=== PATIENT | male | born 1960 | race Caucasian/White ===

== ENCOUNTER 2017-05-19 18:43 | Emergency (ER) | payer MEDICARE, OTHER ==
[~2017-05-19] VITALS: Ht 185.4 cm; Wt 96.2 kg
[~2017-05-19 18:43] MED LIST: BISA-4; ETOD400T; LITH300C3; OLAN15TA16; PREVACID; PROZAC; TRAZADONE
[2017-05-19 18:56] VITALS: BP 82/2
[2017-05-19 19:50] LABS: Basophils # (auto) 0 uL; Basophils % (auto) 0.2 % (0.0-2.0); CONDITION Y; Eosinophils # (auto) 0 uL; Eosinophils % (auto) 0.2 % (0.0-7.0); Hematocrit 47.3 % (41.0-53.0); Hemoglobin 15.6 g/dL (13.5-17.5); Lymphocytes # (auto) 1.2 uL; Lymphocytes % (auto) 10.5 % (10.0-50.0); Mean Corpuscular Hemoglobin 28.3 pg (28.0-32.0); Mean Corpuscular Hgb Conc. 32.9 g/dL (32.0-36.0); Mean Corpuscular Volume 85.9 fL (80.0-100.0); Mean Platelet Volume 7.3 fL (7.4-10.4); Monocytes # (auto) 0.4 uL; Monocytes % (auto) 3.1 % (0.0-12.0); Platelet Count (auto) 280 10^3/uL (140-450); Red Cell Distribution Width 13.9 % (11.6-16.0); White Blood Cell 11.6 10^3/uL (4.4-10.8)
[2017-05-19 20:15] LABS: Alkaline Phosphatase 100 U/L (45-117); Anion Gap 10 (5-15); Aspartate Aminotransferase 27 U/L (15-37); BUN/Creatinine Ratio 13.8; Bilirubin, Total 0.5 mg/dL (0.2-1.0); Blood Urea Nitrogen 12 mg/dL (7-18); Calcium 9.4 mg/dL (8.5-10.1); Carbon Dioxide 22 mmol/L (21-32); Chloride 102 mmol/L (98-107); GFR African American 116 mL/min; GFR Non-African American 96 mL/min; Glucose 130 mg/dL (74-106); Magnesium 2.5 mg/dL (1.6-2.6); Sodium 134 mmol/L (136-145); Total Protein 7.6 g/dL (6.4-8.2)
== END 2017-05-20 00:26 | disposition left against medical advice (07) ==
LOC: ER 18:43
DX: R06.02 Shortness of breath (principal); R51 Headache; Z53.21 Procedure and treatment not carried out due to patient leaving prior to being seen by health care provider
CPT/HCPCS: 36415; 71020; 80053; 83735; 84484; 85025; 93005

== ENCOUNTER 2024-06-24 04:01 | Emergency (ER) | payer MEDICARE, MEDICAID ==
[~2024-06-24] VITALS: Ht 177.8 cm; Wt 104.5 kg
[~2024-06-24 04:01] MED LIST changes: -BISA-4; +BISA-65; +ETOD-182; -ETOD400T; +OLAN15TA; -OLAN15TA16
[2024-06-24] MEDS ORDERED: DOCU-94 PO (07:04)
[2024-06-24] MEDS ORDERED: HYDR25SU21 PR (07:04)
[2024-06-24] MEDS: KETOROLAC TROMETH 60MG/2ML VIAL IM ONE (07:10)
[2024-06-24 07:17] VITALS: BP 125/86; PULSE 74; RESP 18; TEMP 98; O2SAT 97
== END 2024-06-24 07:22 | disposition home or self-care (01) ==
LOC: EDBD 04:01 → ER 04:03
DX: K64.4 Residual hemorrhoidal skin tags (principal); K62.89 Other specified diseases of anus and rectum; F41.9 Anxiety disorder, unspecified; F32.9 Major depressive disorder, single episode, unspecified; E78.5 Hyperlipidemia, unspecified; F15.90 Other stimulant use, unspecified, uncomplicated; Z79.899 Other long term (current) drug therapy
CPT/HCPCS: 96372; 99283; J1885

== ENCOUNTER 2025-09-16 12:15 | Inpatient (IN) | payer MEDICARE, MEDICAID ==
[~2025-09-16] VITALS: Ht 182.9 cm; Wt 99.0 kg
[~2025-09-16 12:15] MED LIST changes: +DOCU-94 PO; +HYDR25SU21 PR
--- NOTE | 2025-09-16 12:34 | ED.PDOC ---
General HPI Comments 65 y.o male presents to the ED for a chief complaint of urinary retention that started 3 days ago. Patient reports history of rectal tear in which he is being treated for, states pain is 10/10 but no new or worsening pain. Patient also mentions lower abdominal pain given no urine output. He has had retention in the past in which he had a catheter placed and had good output. He denies any prostate issues. Denies fever, chills, nausea, vomiting, diarrhea. Chief Complaint: Urinary Time Seen by MD: 12:25 Primary Care Provider: Philip LUCAS Reviewed notes: Nurses Notes, Medications, Allergies Allergies: Coded Allergies: NO KNOWN ALLERGIES (Unverified , 03/25/10) Home Meds Active Scripts Hydrocortisone Acetate (Anusol-Hc) 25 Mg Sup, 1 SUPP MA BID, #14 SUPP Prov:SKIP MAI 06/24/24 Docusate Sodium (Colace) 100 Mg Cap, 1 CAP PO BID, #30 CAP Prov:SKIP MAI 06/24/24 Reported Medications Olanzapine (Zyprexa) 15 Mg Tab 04/24/10 [Trazadone] No Conflict Check 04/24/10 [Prozac] No Conflict Check 04/24/10 [Prevacid] No Conflict Check 04/24/10 Nelagoney Carbonate (Nelagoney Carbonate) 300 Mg Cap 04/24/10 Etodolac (Etodolac) 400 Mg Tab 04/24/10 Bisacodyl (Bisacodyl Ec) 5 Mg Tab 04/24/10 Information Source: Patient Mode of Arrival: Ambulatory Severity: Moderate Inability to void: None Timing: Days (3) Duration: Since onset Onset: Spontaneous Symptoms: Inability to void History of: Chronic indwelling hurtado, Suprapubic catheter Location: Abdomen Modifying factors: None associated signs and symptoms: Abdominal Pain, Inability to Void Past Medical History PAST MEDICAL HISTORY: Anxiety, Depression, High Lipids Surgical History (Other): bilateral feet Family History Family History: Reviewed,noncontributory to illness Social History Smoker: Non-Smoker Alcohol: Occasionally Drugs: Marijuana Lives In: Home Constitutional: denies: chills, diaphoresis, fatigue, fever, malaise, sweats, weakness, others EENTM: denies: blurred vision, double vision, ear bleeding, ear discharge, ear drainage, ear pain, ear ringing, eye pain, eye redness, hearing loss, mouth pain, mouth swelling, nasal discharge, nose bleeding, nose congestion, nose pain, photophobia, tearing, throat pain, throat swelling, voice changes, others Respiratory: denies: cough, hemoptysis, orthopnea, SOB at rest, shortness of breath, SOB with excertion, stridor, wheezing, others Cardiovascular: denies: chest pain, dizzy spells, diaphoresis, Dyspnea on exertion, edema, irregular heart beat, left arm pain, lightheadedness, palpitations, PND, syncope, others Gastrointestinal: reports: abdominal pain, rectal pain; denies: abdomen distended, blood streaked bowels, constipated, diarrhea, dysphagia, difficulty swallowing, hematemesis, melena, nausea, poor appetite, poor fluid intake, rectal bleeding, vomiting, others Genitourinary: reports: others; denies: burning, dysuria, flank pain, frequency, hematuria, incontinence, penile discharge, penile sore, pain, testicle pain, testicle swelling, urgency Neurological: denies: dizziness, fainting, headache, left sided numbness, left sided weakness, numbness, paresthesia, pre-existing deficit, right sided numbness, right sided weakness, seizure, speech problems, tingling, tremors, weakness, others Musculoskeletal: denies: back pain, gout, joint pain, joint swelling, muscle pain, muscle stiffness, neck pain, others Integumetry: denies: bruises, change in color, change in hair/nails, dryness, laceration, lesions, lumps, rash, wounds, others Allergic/Immunocompromised: denies: Difficulty Healing, Frequent Infections, Hives, Itching, others Hematologic/Lymphatic: denies: anemia, blood clots, easy bleeding, easy bruising, swollen glands, others Endocrine: denies: excessive hunger, excessive sweating, excessive thirst, excessive urination, flushing, intolerance to cold, intolerance to heat, unexplained weight gain, unexplained weight loss, others Psychiatric: denies: anxiety, bipolar disorder, depression, hopeless, panic disorder, schizophrenia, sleepless, suicidal, others All Other Systems: Reviewed and Negative Physical Exam General Appearance: Moderate Distress HEENT: Normal ENT Inspection, Pharynx Normal, TMs Normal Neck: Full Range of Motion, Non-Tender, Normal, Normal Inspection Respiratory: Chest Non-Tender, Lungs Clear, No Accessory Muscle Use, No Respiratory Distress, Normal Breath Sounds Cardiovascular: No Edema, No JVD, No Murmur, No Gallop, Normal Peripheral Pulses, Regular Rate/Rhythm Breast Exam: Deferred Gastrointestinal: No Organomegaly, No Pulsatile Mass, Normal Bowel Sounds, Soft, Suprapubic, Tenderness Genitalia: Deferred Pelvic: Deferred Rectal: Deferred Extremities: No calf tenderness, Normal capillary refill, Normal inspection, Normal range of motion, Non-tender, No pedal edema Musculoskeletal : Apperance: Normal Neurologic: Alert, air press operator II-XII nml as Tested, No Motor Deficits, Normal Affect, Normal Mood, No Sensory Deficits Cerebellar Function: Normal Reflexes: Normal Skin: Dry, Normal Color, Warm Lymphatic: No Adenopathy Was a procedure done? Was a procedure done?: No Differential Diagnosis Kidney stone (Female): N/A Penile/Scrotal: Prostatitis, UTI, Phimosis, Hydrocele Urinary Problem (Male): Bladder Outlet, Bladder Obstruction, Epididymitis, Prostatitis, Renal Failure, Urethritis, Urinary Retention X-Ray, Labs, Meds, VS Vital Signs Date Time Temp Pulse Resp B/P (MAP) Pulse Ox O2 Delivery O2 Flow Rate FiO2 09/16/25 13:00 83 20 158/100 (119) 94 09/16/25 12:17 97.2 116 16 117/78 97 97.2 Lab Test 09/16/25 16:14 Range/Units Urine Color Yellow Yellow Urine Clarity Turbid H Clear Urine pH 6.0 5.0-9.0 Urine Specific [place] 1.018 1.001-1.035 Urine Protein Trace H Negative Urine Ketones 1+ H Negative Urine Blood Negative Negative /uL Urine Nitrite Negative Negative Urine Bilirubin Negative Negative Urine Urobilinogen Normal Negative mg/dL Urine Leukocyte Esterase Negative Negative /uL Urine RBC 2 0 - 3 /hpf Urine Microscopic WBC 3 0-3 /HPF Urine Squamous Epithelial Cells Few <5 /hpf Urine Bacteria None seen None Seen /hpf Urine Hyaline Casts Many 0 - 2 /lpf Urine Mucus Few None Seen Urine Glucose Normal Normal mg/dL The urine test is negative The CBC and chemistry panel are within normal limits The CAT scan of the abdomen and pelvis shows: IMPRESSION: 1. No acute abnormality identified in the abdomen or pelvis. 2. Moderate stool in the colon. 3. Low-attenuation lesions in the right kidney are most likely cysts, but not well evaluated on noncontrast enhanced CT. 4. Additional findings as described above. The patient is being admitted at this time An IV Hep-Lock has been established Images Reviewed?: Images reviewed and evaluated by me Time of 1ST Reevaluation: 12:29 Reevaluation 1ST: Unchanged Patient Education/Counseling: Diagnosis, Treatment, Prognosis Family Education/Counseling: No Family Present SEPSIS Sepsis Screen Date sepsis recognized/suspect: Sep 16, 2025 Time Sepsis recognized/suspect: 1217 Recent Procedure: No On Antibiotic Therapy: No Respiratory Rate >20: No Heart Rate >90: Yes Temp<36 C (96.8 F) or >38.3 C: No SBP <90 or MAP <65 mmHG: No New Acute Mental Status Change: No Is the patient on CPAP, BIPAP,: No Physician Orders Hurtado Catheters (09/16/25 ) Ct Ab Pel Wo Con-No Oral Or Iv (09/16/25 16:04) Complete Blood Count (09/16/25 16:49) Basic Metabolic Panel (09/16/25 16:49) Heplock Iv (09/16/25 16:49) Ondansetron Hcl (Zofran) (09/16/25 17:00) Morphine Sulfate Injection (09/16/25 17:00) Vital Signs Date Time Temp Pulse Resp B/P (MAP) Pulse Ox O2 Delivery O2 Flow Rate FiO2 09/16/25 13:00 83 20 158/100 (119) 94 09/16/25 12:17 97.2 116 16 117/78 97 97.2 Departure 1 Departure Time of Disposition: 16:57 Impression: Primary Impression: Intractable abdominal pain Disposition: 09 ADMITTED INPATIENT Admit to: Med Surg Condition: Fair Critical Care Note Critical Care Time?: No Stability Stability form required: Yes Unstable for transfer: ED Physician Assesment (Clinical assesment) I personally scribed for MAGGIE DESOUZA MD ([email or web address]) on 09/16/25 at 12:34. Electronically submitted by Lovely Durand ([facility]). MAGGIE DESOUZA MD Sep 16, 2025 12:34
[2025-09-16 16:28] LABS: Urine Protein, UAD TRACE (Negative)
--- NOTE | 2025-09-16 16:42 | DVH ---
CLINICAL INFORMATION: Pain. Rectal pain. TECHNIQUE: Axial CT images of the abdomen and pelvis were obtained without IV contrast. Coronal and sagittal reformatted images were obtained, reviewed, and stored. Evaluation of the parenchymal organs is limited without IV contrast. Evaluation of the bowel and mesentery is limited without oral contrast. All CT scans at this medical facility are performed using dose modulation techniques as appropriate to a performed exam including the following: Automated exposure control was utilized; adjustment of the MA and/or KV according to patient size; and use of iterative reconstruction technique. CTDIvol = 21.6 mGy DLP = 1304.07 mGy-cm COMPARISON: None FINDINGS: Lung bases: Lung bases are clear. Liver: Grossly unremarkable in its noncontrast enhanced appearance. No abnormal density or focal lesion identified. Biliary: No calcified gallstones or biliary ductal dilatation. Spleen: Unremarkable. Pancreas: Grossly unremarkable in its noncontrast enhanced appearance. Adrenal glands: Unremarkable. No mass. Kidneys: No hydronephrosis. No renal or ureteral calculi. Fluid density lesions in the right kidney, with the largest measuring up to 1.6 cm, likely cysts, although not optimally evaluated on noncontrast enhanced CT. Aorta/Vascular: Scattered atherosclerotic calcification. No abdominal aortic aneurysm. Lymph nodes: No mass or lymphadenopathy. Bowel/mesentery: No small bowel obstruction. No free air or free fluid. Appendix is visualized and appears unremarkable. Moderate stool in the colon. Pelvic organs: Grossly unremarkable. Bladder: Bladder is completely collapsed around a Levine catheter balloon. Abdominal wall: Small fat containing indirect right inguinal hernia. Bones: No acute fracture or suspicious intraosseous lesion. IMPRESSION: 1. No acute abnormality identified in the abdomen or pelvis. 2. Moderate stool in the colon. 3. Low-attenuation lesions in the right kidney are most likely cysts, but not well evaluated on noncontrast enhanced CT. 4. Additional findings as described above.
[2025-09-16 17:28] LABS: Potassium 4.8 mmol/L (3.5-5.1)
[2025-09-16 17:29] LABS: Anion Gap 6 (5-15); Carbon Dioxide 21 mmol/L (20-31)
[2025-09-16 17:30] LABS: Calcium 10.3 mg/dL (8.7-10.4)
[2025-09-16 17:34] LABS: Glucose 98 mg/dL (74-106)
[2025-09-16 17:35] LABS: BUN/Creatinine Ratio 4.8 (10.0-20.0)
[2025-09-16 17:41] LABS: Hematocrit 46.5 % (41.0-53.0); Hemoglobin 16.4 g/dL (13.5-17.5); Mean Corpuscular Hemoglobin 29.2 pg (28.0-32.0); Mean Corpuscular Volume 82.8 fL (80.0-100.0); Nucleated Red Blood Cells % 0.3 %
[2025-09-16 17:43] LABS: Blood Urea Nitrogen 8 mg/dL (9-23); Chloride 108 mmol/L (98-107); Sodium 135 mmol/L (136-145)
[2025-09-16 17:55] VITALS: PULSE 88; RESP 20; O2SAT 96
[2025-09-16] MEDS: ONDANSETRON HCL 4 MG/2 ML VIAL IV ONE (17:57)
[2025-09-16] MEDS: MORPHINE SULFATE 4 MG/ML SYR/VIAL IV ONE (17:58)
--- NOTE | 2025-09-16 21:28 | DVHHPRES ---
History of Present Illness Resident Creating Document: JULIAN MARTINEZ History of Present Illness Patient is a 65-year-old male with past medical history of anxiety, depression, presented to [facility] ED with complaint urinary retention and rectal pain. The patient reports experiencing constipation for the past two months, accompanied by rectal pain that has recently worsened. She visited [place] one week ago for evaluation, where she was diagnosed with a rectal fissure at the 3 o'clock position and was advised that surgery was not necessary. He was also found to have lower abdominal discomfort due to lack of urine output past 3 days, for which a Levine catheter was placed with good drainage and no signs of acute distress. On evaluation in the ED, patient is afebrile, vitals are stable. Initial labs show hyponatremia, BUN 8, creatinine 1.66. Abdominal CT shows moderate stool in the colon and low-attenuation lesions in the right kidney are most likely cysts. The patient was started on IV antibiotics and IV fluids. Patient is admitted for further evaluation and management. Psych: Anxiety, Depression Past Surgical History: None Family History: None Smoke: No ALCOHOL: none Drugs: None Review of Systems Review of Systems Eyes: No Pain, No Vision change, Conjunctivae inflammation, No Eyelid inflammation, No Other, Redness ENT: No Ear pain, No Ear discharge, No Nose pain, No Nose discharge, No Nose congestion, No Mouth pain, No Mouth swelling, No Throat pain, No Throat swelling, No Other Cardiovascular: No Chest Pain, No Palpitations, No Orthopnea, No Paroxysmal No Dyspnea, No Edema, No Lt Headedness, No Other Respiratory: No Cough, No Dry, No Shortness of breath, No SOB with exertion, No Wheezing, No Hemoptysis, No Pleuritic Pain, No Sputum, No Other Gastrointestinal: No Nausea, No Vomiting, Abdominal Pain, No Diarrhea, Constip ation, No Melena, No Hematochezia, No Other Genitourinary: No Dysuria, No Frequency, No Incontinence, No Hematuria, No Retention, No Other Musculoskeletal: No other, No neck pain, No shoulder pain, No arm pain, No back pain, No hand pain, No leg pain, No foot pain Skin: No Rash, No Lesions, No Jaundice, No Bruising, No Other Allergies: Coded Allergies: NO KNOWN ALLERGIES (Unverified , 03/25/10) Medications Current Medications Medications Dose Ordered Sig/Hermelinda Route Start Time Stop Time Status Last Admin Dose Admin Docusate Sodium 100 mg BIDPRN PRN PO 09/16/25 21:00 UNV Hydromorphone HCl 0.5 mg Q6HPRN PRN IV 09/16/25 21:00 UNV Lactulose 30 ml BID PRN PO 09/16/25 21:00 UNV Alprazolam 0.5 mg BID PO 09/16/25 22:00 UNV Ciprofloxacin HCl 1 drop TID EACHEYE 09/16/25 22:00 UNV Exam Vital Signs Vital Signs Date Time Temp Pulse Resp B/P (MAP) Pulse Ox O2 Delivery O2 Flow Rate FiO2 09/16/25 18:48 80 19 130/74 09/16/25 18:41 97.5 97 97.5 09/16/25 17:55 Room Air* 0 21 Exam General Appearance: Cooperative. Well developed. Well nourished. NAD Head Exam: Normal inspection. Eyes: Bilateral conjunctival injection Neck Exam: Normal inspection. Non-tender. Normal alignment Pulmonary/Respiratory: Chest non-tender. Clear bilateral breath sounds, no crackles, no wheezing. Cardiovascular/Chest: Regular rate and rhythm. No murmurs. No JVD. Peripheral Pulses: 2+ Radial (R). 2+ Radial (L). 2+ Pedal (R). 2+ Pedal (L) Abdominal Exam: Distended. Normal bowel sounds. Soft but tender in the lower abdomen. No visible veins. No hepatosplenomegaly. No palpable masses. Ankle Exam: Negative ankle edema Lower extremities: Negative lower extremity edema Neuro/Mental Status: A&O x4. Coherent. Thoughts/Psych: Normal thought pattern. Appropriate mood and affect. Good judgement and insight Skin Exam: Normal inspection. Normal color. Warm. Dry Labs/Xrays Labs Test 09/16/25 17:00 09/16/25 16:14 Range/Units White Blood Count 10.1 4.4-10.8 10^3/uL Red Blood Count 5.62 4.5-5.90 10^6/uL Hemoglobin 16.4 13.5-17.5 g/dL Hematocrit 46.5 41.0-53.0 % Mean Corpuscular Volume 82.8 80.0-100.0 fL Mean Corpuscular Hemoglobin 29.2 28.0-32.0 pg Mean Corpuscular Hemoglobin Concent 35.3 32.0-36.0 g/dL Red Cell Distribution Width 13.9 11.8-14.3 % Platelet Count 288 140-450 10^3/uL Mean Platelet Volume 8.1 6.9-10.8 fL Neutrophils (%) (Auto) 74.2 37.0-80.0 % Lymphocytes (%) (Auto) 16.3 10.0-50.0 % Monocytes (%) (Auto) 9.1 0.0-12.0 % Eosinophils (%) (Auto) 0.2 0.0-7.0 % Basophils (%) (Auto) 0.2 0.0-2.0 % Neutrophils # (Auto) 7.5 1.6-8.6 10 ^3/uL Lymphocytes # (Auto) 1.6 0.4-5.4 10 ^3/uL Monocytes # (Auto) 0.9 0-1.3 10 ^3/uL Eosinophils # (Auto) 0 0-0.8 10 ^3/uL Basophils # (Auto) 0 0-0.2 10 ^3/uL Nucleated Red Blood Cells 0.3 % Sodium Level 135 L 136-145 mmol/L Potassium Level 4.8 3.5-5.1 mmol/L Chloride Level 108 H 98-107 mmol/L Carbon Dioxide Level 21 20-31 mmol/L Anion Gap 6 5-15 Blood Urea Nitrogen 8 L 9-23 mg/dL Creatinine 1.66 H 0.700-1.30 mg/dL Glomerular Filtration Rate Calc 45 >90 mL/min BUN/Creatinine Ratio 4.8 L 10.0-20.0 Serum Glucose 98 74-106 mg/dL Calcium Level 10.3 8.7-10.4 mg/dL Urine Color Yellow Yellow Urine Clarity Turbid H Clear Urine pH 6.0 5.0-9.0 Urine Specific [place] 1.018 1.001-1.035 Urine Protein Trace H Negative Urine Ketones 1+ H Negative Urine Blood Negative Negative /uL Urine Nitrite Negative Negative Urine Bilirubin Negative Negative Urine Urobilinogen Normal Negative mg/dL Urine Leukocyte Esterase Negative Negative /uL Urine RBC 2 0 - 3 /hpf Urine Microscopic WBC 3 0-3 /HPF Urine Squamous Epithelial Cells Few <5 /hpf Urine Bacteria None seen None Seen /hpf Urine Hyaline Casts Many 0 - 2 /lpf Urine Mucus Few None Seen Urine Glucose Normal Normal mg/dL SEPSIS Sepsis Screen Date sepsis recognized/suspect: Sep 16, 2025 Time Sepsis recognized/suspect: 1754 Recent Procedure: No On Antibiotic Therapy: No Respiratory Rate >20: No Heart Rate >90: No Temp<36 C (96.8 F) or >38.3 C: No SBP <90 or MAP <65 mmHG: No New Acute Mental Status Change: No Is the patient on CPAP, BIPAP,: No Physician Orders Ct Ab Pel Wo Con-No Oral Or Iv (09/16/25 16:04) Heplock Iv (09/16/25 16:49) Admit (09/16/25 20:48) Allergies (09/16/25 20:48) Code Status (09/16/25 20:48) Renal Standard(2gna,3gk,Lopho) (09/17/25 Breakfast) Docusate Sodium Capsule (Colace Capsule) (09/16/25 21:00) Complete Blood Count (09/17/25 04:00) Comprehensive Metabolic Panel (09/17/25 04:00) Condition: Fair (09/16/25 20:48) Stat Ekg For Chest Pain (09/16/25 20:48) Notify Of Changes From Base (09/16/25 20:48) Hydromorphone Injection (Dilaudid Inject (09/16/25 21:00) Drug Screen (09/16/25 20:48) Sodium Chloride 0.9% (09/16/25 21:00) Kub Abdomen Single View (09/17/25 04:00) Lactulose Oral (09/16/25 21:00) Bisacodyl Ec Tablet (Dulcolax Ec Tablet) (09/16/25 21:00) Polyethylene Glycol 17g Powder (Miralax (09/16/25 21:00) Alprazolam Tablet (Xanax Tablet) (09/16/25 22:00) Thyroid Stimulating Hormone (09/16/25 20:48) Hepatic Panel (09/16/25 20:48) Magnesium (09/16/25 20:48) Kidney (09/16/25 20:48) Ciprofloxacin 0.3% Opthalmic (Cipro Opth (09/16/25 22:00) * Urology Consult (09/16/25 21:24) Psa Total+% Free (09/16/25 21:24) Vital Signs Date Time Temp Pulse Resp B/P (MAP) Pulse Ox O2 Delivery O2 Flow Rate FiO2 09/16/25 18:48 80 19 130/74 09/16/25 18:41 97.5 77 18 122/60 (80) 97 97.5 09/16/25 17:58 88 20 112/68 09/16/25 17:55 88 20 96 Room Air* 0 21 09/16/25 17:55 97.8 88 20 112/68 (83) 96 97.8 Laboratory Tests Test 09/16/25 17:00 White Blood Count 10.1 10^3/uL (4.4-10.8) Medications Medications Dose Ordered Sig/Hermelinda Route Start Time Stop Time Status Last Admin Dose Admin Morphine Sulfate 4 mg ONCE ONCE IV 09/16/25 17:00 09/16/25 17:01 DC 09/16/25 17:58 4 MG Ondansetron HCl 4 mg ONCE ONCE IV 09/16/25 17:00 09/16/25 17:01 DC 09/16/25 17:57 4 MG Assessment/Plan Assessment/Plan Acute urinary retention possibly due to BPH Levine catheter Urology consult Kidney US PSA Total+ % Free Severe constipation Rectal fissure due to above Abdomen/Pelvis CT: No acute abnormality identified in the abdomen or pelvis. Moderate stool in the colon. KUB abdomen ordered Dicusate 100 MG PO bid prn pain management with Dilaudid 0.5 MG Lactulose 30 ML PO bid prn Dulcolax 10 MG PO once IV NS 130 MLS/HR one Zofran 4 MG IV one Bilateral bacterial conjunctivitis Ciprofloxacin 0.3% 1 drop Anxiety Depression Xanax 0.5 MG PO bid Renal cysts Abdomen/Pelvis CT: Low-attenuation lesions in the right kidney are most likely cysts, but not well evaluated on noncontrast enhanced CT. DANNY Monitor renal function Avoid nephrotoxic drugs Diet: Renal Goals of care: Full code, discussed for >30 minutes on 09/16/25 Plan discussed with patient Plan discussed with Dr. Ji Plan discussed with: Patient My Orders Orders - JULIAN MARTINEZ RESIDENT Procedure Category Date Status Time Admit ADMIT 09/16/25 Transmitted 20:48 Allergies TERESITA 09/16/25 In Process 20:48 Code Status CODE 09/16/25 Transmitted 20:48 Renal DIET 09/17/25 Transmitted Standard(2gna,3gk,Lopho) Breakfast Docusate Sodium PHA 09/16/25 Logged Capsule (Colace 21:00 Complete Blood Count LAB 09/17/25 Verified 04:00 Comprehensive LAB 09/17/25 Verified Metabolic Panel 04:00 Condition: Fair TERESITA 09/16/25 In Process 20:48 Stat Ekg For Chest TERESITA 09/16/25 In Process Pain 20:48 Notify Md Of Changes TERESITA 09/16/25 In Process From Base 20:48 Hydromorphone PHA 09/16/25 Logged Injection (Dilaudid 21:00 Drug Screen LAB 09/16/25 Logged 20:48 Sodium Chloride 0.9% PHA 09/16/25 Logged 21:00 Kub Abdomen Single XY 09/17/25 Logged View 04:00 Lactulose Oral PHA 09/16/25 Logged 21:00 Bisacodyl Ec Tablet PHA 09/16/25 Logged (Dulcolax Ec Tablet) 21:00 Polyethylene Glycol PHA 09/16/25 Logged 17g Powder (Miralax 21:00 Alprazolam Tablet PHA 09/16/25 Logged (Xanax Tablet) 22:00 Thyroid Stimulating LAB 09/16/25 In Process Hormone 20:48 Hepatic Panel LAB 09/16/25 In Process 20:48 Magnesium LAB 09/16/25 In Process 20:48 Kidney US 09/16/25 Logged 20:48 Ciprofloxacin 0.3% PHA 09/16/25 Logged Opthalmic (Cipro Opth 22:00 * Urology Consult CONS 09/16/25 Transmitted 21:24 Psa Total+% Free LAB 09/16/25 Logged 21:24 Date of Service: Sep 16, 2025 Billing Provider: BRYAN JI MD Common Visit Codes: 88519-[id number] INP/OBS CARE (HIGH) Secondary Visit Codes: 92406-[id number] CARE PLAN 30 MINUTES JULIAN MARTINEZ RESIDENT Sep 16, 2025 21:28
[2025-09-16 21:46] LABS: Alanine Aminotransferase 36.0 U/L (7-40); Albumin 4.7 g/dL (3.2-4.8); Alkaline Phosphatase 78.0 U/L (46-116); Bilirubin, Direct 0.3 mg/dL (<0.3); Bilirubin, Total 0.8 mg/dL (0.2-1.0); Magnesium 2.1 mg/dL (1.6-2.6); Total Protein 7.6 g/dL (5.7-8.2)
[2025-09-16] MEDS: ALPRAZolam 0.5 MG TAB PO SCH (22:49)
[2025-09-16] MEDS: POLYETHYLENE GLYCOL 17 GM PWDR PO ONE (22:49)
[2025-09-16] MEDS: BISACODYL 5 MG EC TAB PO ONE (22:49)
[2025-09-16] MEDS: CIPROFLOXACIN 0.3%OPTH(EYE) SOL 5ML EACHEYE SCH (22:50)
[2025-09-16 23:11] LABS: Amphetamine Screen, Urine Neg (NEGATIVE); Barbiturate Scree,Urine Neg (NEGATIVE); Benzodiazephine Screen, Urine Pos (NEGATIVE); Cannabinoid Screen, Urine Pos (NEGATIVE); Cocaine Screen, Urine Neg (NEGATIVE); Opiate Scree,Urine Pos (NEGATIVE); Phencyclidine Screen, Urine Neg (NEGATIVE)
[2025-09-17] VITALS (8 sets, daily range): BP systolic 116–141; BP diastolic 72–95; PULSE 64–100; RESP 16–20; TEMP 97.4–98.2; O2SAT 91–99
[2025-09-17] MEDS ORDERED: ESCI10TA PO (00:16)
[2025-09-17] MEDS ORDERED: LIDO5DIS21 TOP (00:16)
[2025-09-17] MEDS ORDERED: POLY335015 PO (00:16)
[2025-09-17] MEDS ORDERED: METH100035 PO (00:16)
[2025-09-17] MEDS ORDERED: MOXI0.5D9 OP (00:16)
[2025-09-17] MEDS ORDERED: NIFE1TAB31 PO (00:16)
[2025-09-17] MEDS: SODIUM CHLORIDE 0.9% 1,000 ML IV ONE (00:31)
[2025-09-17] MEDS: HYDROmorphone HCL 2 MG/ML VL/or syr IV PRN (00:31)
--- NOTE | 2025-09-17 05:38 | DVH ---
Exam: XY KUB ABDOMEN SINGLE VIEW Indication: constipation Comparison: CT CT AB PEL WO CON-NO ORAL OR IV on DOS: 09/16/25 Technique: Single radiographic view of the abdomen. Findings: Nonobstructive bowel gas pattern noted. Moderate Retained colorectal stool. There is no definite evidence for pneumoperitoneum. No abnormal calcifications noted. Impression: 1. Moderate retained colorectal stool. Nonobstructive bowel gas pattern.
[2025-09-17 06:37] LABS: Hematocrit 45.1 % (41.0-53.0); Hemoglobin 15.5 g/dL (13.5-17.5); Mean Corpuscular Hemoglobin 28.7 pg (28.0-32.0); Mean Corpuscular Volume 83.6 fL (80.0-100.0); Nucleated Red Blood Cells % 0.0 %
[2025-09-17 06:49] LABS: Alanine Aminotransferase 34 U/L (7-40); Albumin 4.3 g/dL (3.2-4.8); Alkaline Phosphatase 67 U/L (46-116); Anion Gap 9 (5-15); BUN/Creatinine Ratio 11.3 (10.0-20.0); Blood Urea Nitrogen 17 mg/dL (9-23); Calcium 9.5 mg/dL (8.7-10.4); Carbon Dioxide 26 mmol/L (20-31); Chloride 102 mmol/L (98-107); Glucose 95 mg/dL (74-106); Potassium 4.4 mmol/L (3.5-5.1); Sodium 137 mmol/L (136-145); Total Protein 6.9 g/dL (5.7-8.2)
[2025-09-17 06:50] LABS: Bilirubin, Total 0.6 mg/dL (0.2-1.0)
[2025-09-17] MEDS: LACTULOSE 20Gm/30ML SOLN PO PRN (08:48)
--- NOTE | 2025-09-17 15:36 | DVH ---
INDICATION: acute urinary retension TECHNIQUE: Multiple real-time sonographic images of the kidneys and bladder were obtained. COMPARISON: None FINDINGS: RIGHT kidney measures 11.1 cm in length. Anechoic cortical lesion measuring 1.9 x 1.5 x 1.8 cm consistent with cortical cyst No hydronephrosis. LEFT kidney measures 10.2 cm in length. No hydronephrosis. No large intraluminal masses are seen in the bladder. Levine catheter in bladder bladder is empty. IMPRESSION: 1. 11.1 cm long right kidney. 10.2 cm long left kidney. 2. 2 cm right renal cyst
[2025-09-17] MEDS: DOCUSATE SOD 100 MG CAP PO PRN (17:06)
[2025-09-17] MEDS: TAMSULOSIN HYDROCHLORIDE 0.4 MG CAP PO SCH (17:06)
[2025-09-17] MEDS: SODIUM CHLORIDE 0.9% 1,000 ML IV SCH (17:08)
--- NOTE | 2025-09-17 19:26 | DVHPNRES ---
Progress Note Date Seen: Sep 17, 2025 Resident Creating Document: IONA HENLEY RESIDENT Medical Necessity Reason Pt with a Central, PICC or Fol: Yes Subjective Review of Systems Luis F Petit is a 65-year old male with past medical history of anxiety and depression who presented to the ED with the chief complaint of acute urinary retention and rectal pain. The patient mentioned he has been having constipation since the last 2 months which has recently worsened. He went to [place] 1 week back where he was diagnosed with rectal fissure at 3 o'clock position. He complains of intense rectal pain and a feeling of fullness in the abdomen, and little to no relief with stool softeners. He also mentioned having lower abdominal pain since the last 3 days with almost no urine output. Abdomen/pelvic CT showed moderate stool in the colon and right kidney cyst. The patient had passage of small bowel movement after getting lactulose in the ED. Patient also mentions having redness, crusting and yellowish discharge from both eyes since 2 days. Past medical history: Anxiety, depression Past surgical history: None Social & Personal history: Lives at home with family Smoking, alcohol, drugs: Denies Allergies: No known allergies Patient seen and examined at bedside. Patient is alert and oriented to time, place person and responding to all questions. Eyes: No Pain, No Vision change, Conjunctivae inflammation, No Eyelid inflammation, Redness ENT: No Ear pain, No Ear discharge, No Nose pain, No Nose discharge, No Nose congestion, No Mouth pain, No Mouth swelling, No Throat pain, No Throat swelling Cardiovascular: No Chest Pain, No Palpitations, No Orthopnea, No Paroxysmal No Dyspnea, No Edema, No Lt Headedness Respiratory: No Cough, No Dry, No Shortness of breath, No SOB with exertion, No Wheezing, No Hemoptysis, No Pleuritic Pain, No Sputum Gastrointestinal: No Nausea, No Vomiting, Abdominal Pain, No Diarrhea, No Constipation, No Melena, No Hematochezia Genitourinary: No Dysuria, No Frequency, No Incontinence, No Hematuria, No Retention Objective vital signs Vital Sign Date Time Temp Pulse Resp B/P (MAP) Pulse Ox O2 Delivery O2 Flow Rate FiO2 09/17/25 16:55 97.5 72 20 134/82 (99) 91 97.5 09/17/25 15:07 Room Air* 0 21 Total Intake and Output 09/16/25 09/16/25 09/17/25 15:00 23:00 07:00 Intake Total 250 ml Output Total 225 ml Balance 25 ml medications Current Medications Medications Dose Ordered Sig/Hermelinda Route Start Time Stop Time Status Last Admin Dose Admin Docusate Sodium 100 mg BIDPRN PRN PO 09/16/25 21:00 09/17/25 17:06 100 MG Hydromorphone HCl 0.5 mg Q6HPRN PRN IV 09/16/25 21:00 09/17/25 08:53 0.5 MG Lactulose 30 ml BID PRN PO 09/16/25 21:00 09/17/25 08:48 30 ML Alprazolam 0.5 mg BID PO 09/16/25 22:00 09/17/25 09:33 0.5 MG Ciprofloxacin HCl 1 drop TID EACHEYE 09/16/25 22:00 09/17/25 14:06 1 DROP Tamsulosin HCl 0.4 mg QPM PO 09/17/25 18:00 09/17/25 17:06 0.4 MG Sodium Chloride 1,000 ml @ 75 mls/hr [id number] IV 09/17/25 16:00 09/17/25 17:08 75 MLS/HR Examination General Appearance: Cooperative. Well developed. Well nourished. NAD Head Exam: Normal inspection, bilateral conjunctival redness, crusting Neck Exam: Normal inspection. Non-tender. Normal alignment Pulmonary/Respiratory: Chest non-tender. Clear bilateral breath sounds, no crackles, no wheezing. Cardiovascular/Chest: Regular rate and rhythm. No murmurs. No JVD. Peripheral Pulses: 2+ Radial (R). 2+ Radial (L). 2+ Pedal (R). 2+ Pedal (L) Abdominal Exam: Normal bowel sounds. Soft. distended abdomen, no visible veins, tenderness on palpation of lower abdomen. No hepatospenomegaly. No masses Ankle Exam: Negative ankle edema Lower extremities: Negative lower extremity edema Neuro/Mental Status: A&O x4. Coherent. Thoughts/Psych: Normal thought pattern. Appropriate mood and affect. Good judgement and insight Skin Exam: Normal inspection. Normal color. Warm. Dry Rectal exam: on inspection, anal skin tag present, no external hemorrhoids seen, patient refused SAVI due to rectal pain Nurse Kaycee was present as plant floor automation manager during the examination laboratory and microbiology Laboratory Tests 09/17/25 05:52 Test 09/17/25 05:52 Range/Units Serum Glucose 95 74-106 mg/dL Labs and/or images reviewed: Labs reviewed by me, Image(s) reviewed by me Problem List/Assessment/Plan Problem List/Assessment/Plan # Acute urinary retention, possibly due to BPH # Renal cyst -PSA pending -urology consult placed, pending evaluation -Levine catheter in situ -Renal US- 2 cm right renal cyst -Abdomen/pelvic CT-Moderate stool in the colon, right kidne cysts and small fat containing indirect right inguinal hernia -flomax 0.4 mg q pm po # Severe acute on chronic constipation # Rectal fissure -Abdomen/pelvic CT-Moderate stool in the colon, right kidne cysts and small fat containing indirect right inguinal hernia -lactulose 30 mL p.o. b.i.d. -colace 100mg po bid -small bowel follow through ordered # DANNY, likely due to VMN -creatinine is 1.51 -IV fluid NS @ 75ml/hr -avoid nephrotoxic agents -monitor BMP # Acute bilateral conjunctivitis, likely bacterial -ciprofloxacin 0.3% 1 drop tid each eye # Anxiety # Depression -continue Xanax 0.5 mg p.o. b.i.d. PUD prophylaxis: Not indicated DVT prophylaxis: Ambulatory Goals of care: Full code, discussed for >23 minutes on Plan discussed with patient Plan discussed with Dr Ji Plan discussed with: Patient My Orders My Orders Orders - IONA HENLEY RESIDENT Procedure Category Date Status Time Sodium Chloride 0.9% PHA 09/17/25 In Process 16:00 Date of Service: Sep 17, 2025 Billing Provider: BRYAN JI MD Common Visit Codes: [id number] INP/OBS CARE(HIGH) IONA HENLEY RESIDENT Sep 17, 2025 19:26
[2025-09-17] MEDS: LIDOCAINE HCL 5 % TOP OINT 35 GM TOP ONE (19:30)
[2025-09-18 01:00] VITALS: BP 131/81; PULSE 82; RESP 16; TEMP 97.7; O2SAT 94
[2025-09-18 05:00] VITALS: BP 138/94; PULSE 81; RESP 17; TEMP 97.9; O2SAT 98
[2025-09-18 05:57] LABS: Chloride 101 mmol/L (98-107); Potassium 4.3 mmol/L (3.5-5.1)
[2025-09-18 05:58] LABS: Anion Gap 11 (5-15); Carbon Dioxide 24 mmol/L (20-31)
[2025-09-18 05:59] LABS: Calcium 9.2 mg/dL (8.7-10.4)
[2025-09-18 06:03] LABS: BUN/Creatinine Ratio 7.9 (10.0-20.0); Glucose 89 mg/dL (74-106)
[2025-09-18 06:05] LABS: Blood Urea Nitrogen 8 mg/dL (9-23); Sodium 136 mmol/L (136-145)
[2025-09-18 08:00] VITALS: O2SAT 96
[2025-09-18 12:07] LABS: Prostate Specific Antigen 2.4 ng/mL (0.0-4.0)
[2025-09-18 13:19] VITALS: BP 131/87; PULSE 93; RESP 20; TEMP 98; O2SAT 99
--- NOTE | 2025-09-18 13:42 | DVHINCON2 ---
Date of service: Sep 18, 2025 Referring Physician Hospitalist Reason for Consultation Urinary retention and rectal pain History of Present Illness Patient is admitted to [facility] for rectal pain (pain when having bowel movement). He is known to urology for history of BPH status post UroLift prostate implantation in 2022. Patient states that he was unable to urinate for three days prior to admission due to rectal pain. Levine catheter was in place at this time but he is still having pain in the rectal area. He states he was diagnosed with the anal fissure and has an appointment to see a colorectal surgeon specialist but not until December of 2025. 65-year-old male with past medical history of anxiety, depression, presented to [facility] ED with complaint urinary retention and rectal pain. The patient reports experiencing constipation for the past two months, accompanied by rectal pain that has recently worsened. She visited [place] one week ago for evaluation, where she was diagnosed with a rectal fissure at the 3 o'clock position and was advised that surgery was not necessary. He was also found to have lower abdominal discomfort due to lack of urine output past 3 days, for which a Levine catheter was placed with good drainage and no signs of acute distress. On evaluation in the ED, patient is afebrile, vitals are stable. Initial labs show hyponatremia, BUN 8, creatinine 1.66. Abdominal CT shows moderate stool in the colon and low-attenuation lesions in the right kidney are most likely cysts. The patient was started on IV antibiotics and IV fluids. Patient is admitted for further evaluation and management. Past Medical History Anxiety, Depression UroLift prostate implantation 2022 Family History: Patient reports no known family medical history. Allergies: Coded Allergies: NO KNOWN ALLERGIES (Unverified , 03/25/10) Home Meds Reported Medications Escitalopram Oxalate (Lexapro) 10 Mg Tab, 1 TAB PO DAILY, #90 TAB 3 Refills 09/17/25 Methocarbamol (Robaxin) 1,000 Mg/10 Ml Inj, 750 MG PO, INJ 09/17/25 Lidocaine (LIDODERM 5% TOPICAL PATCH) 1 Patch Ph, 1 PATCH TOP DAILY, #30 PATCH 1 Refill 09/17/25 Nifedipine (Nifedipine Er) 30 Mg Tab, 1 TAB PO DAILY, #90 TAB 1 Refill 09/17/25 Polyethylene Glycol 3350 (Miralax) 17 Gm Pow, 17 GM PO, POW 09/17/25 Moxifloxacin Hydrochloride (Moxifloxacin) 0.5 % Hernandez, 0.5 % OP, HERNANDEZ 09/17/25 Current Medications Current Medications Medications (Trade) Dose Ordered Sig/Hermelinda Route PRN Reason Start Time Stop Time Status Last Admin Tamsulosin HCl (Flomax) 0.4 mg QPM PO 09/17/25 18:00 09/17/25 17:06 Sodium Chloride 1,000 ml @ 75 mls/hr [id number] IV 09/17/25 16:00 09/18/25 05:41 Review of Systems Eyes: No Pain, No Vision change, Conjunctivae inflammation, No Eyelid inflammation, No Other, Redness ENT: No Ear pain, No Ear discharge, No Nose pain, No Nose discharge, No Nose congestion, No Mouth pain, No Mouth swelling, No Throat pain, No Throat swelling, No Other Cardiovascular: No Chest Pain, No Palpitations, No Orthopnea, No Paroxysmal No Dyspnea, No Edema, No Lt Headedness, No Other Respiratory: No Cough, No Dry, No Shortness of breath, No SOB with exertion, No Wheezing, No Hemoptysis, No Pleuritic Pain, No Sputum, No Other Gastrointestinal: No Nausea, No Vomiting, Abdominal Pain, No Diarrhea, Constipation, No Melena, No Hematochezia, No Other Genitourinary: No Dysuria, No Frequency, No Incontinence, No Hematuria, No Retention, No Other Musculoskeletal: No other, No neck pain, No shoulder pain, No arm pain, No back pain, No hand pain, No leg pain, No foot pain Skin: No Rash, No Lesions, No Jaundice, No Bruising, No Other Allergies: Coded Allergies: NO KNOWN ALLERGIES (Unverified , 03/25/10) Medications Current Medications Medications Dose Ordered Sig/Hermelinda Route Start Time Stop Time Status Last Admin Dose Admin Docusate Sodium 100 mg BIDPRN PRN PO 09/16/25 21:00 UNV Hydromorphone HCl 0.5 mg Q6HPRN PRN IV 09/16/25 21:00 UNV Lactulose 30 ml BID PRN PO 09/16/25 21:00 UNV Alprazolam 0.5 mg BID PO 09/16/25 22:00 UNV Ciprofloxacin HCl 1 drop TID EACHEYE 09/16/25 22:00 UNV Vital Signs Vital Signs Date Time Temp Pulse Resp B/P (MAP) Pulse Ox O2 Delivery O2 Flow Rate FiO2 09/18/25 13:19 98.0 93 20 131/87 (102) 99 98.0 09/18/25 08:00 Room Air* 0 21 Physical Exam Vital Signs Date Time Temp Pulse Resp B/P (MAP) Pulse Ox O2 Delivery O2 Flow Rate FiO2 09/16/25 18:48 80 19 130/74 09/16/25 18:41 97.5 97 97.5 09/16/25 17:55 Room Air* 0 21 Exam General Appearance: Cooperative. Well developed. Well nourished. NAD Head Exam: Normal inspection. Eyes: Bilateral conjunctival injection Neck Exam: Normal inspection. Non-tender. Normal alignment Pulmonary/Respiratory: Chest non-tender. Clear bilateral breath sounds, no crackles, no wheezing. Cardiovascular/Chest: Regular rate and rhythm. No murmurs. No JVD. Peripheral Pulses: 2+ Radial (R). 2+ Radial (L). 2+ Pedal (R). 2+ Pedal (L) Abdominal Exam: Distended. Normal bowel sounds. Soft but tender in the lower abdomen. No visible veins. No hepatosplenomegaly. No palpable masses. exam: Levine catheter in place draining clear yellow urine Ankle Exam: Negative ankle edema Lower extremities: Negative lower extremity edema Neuro/Mental Status: A&O x4. Coherent. Thoughts/Psych: Normal thought pattern. Appropriate mood and affect. Good judgement and insight Skin Exam: Normal inspection. Normal color. Warm. Dry Labs/Diagnostic Data Labs Test 09/18/25 05:33 09/17/25 10:26 09/17/25 05:52 09/16/25 17:00 Range/Units Sodium Level 136 136-145 mmol/L Potassium Level 4.3 3.5-5.1 mmol/L Chloride Level 101 98-107 mmol/L Carbon Dioxide Level 24 20-31 mmol/L Anion Gap 11 5-15 Blood Urea Nitrogen 8 L 9-23 mg/dL Creatinine 1.01 0.700-1.30 mg/dL Glomerular Filtration Rate Calc 82 >90 mL/min BUN/Creatinine Ratio 7.9 L 10.0-20.0 Serum Glucose 89 74-106 mg/dL Calcium Level 9.2 8.7-10.4 mg/dL Vitamin B12 Level 491 211-911 pg/mL Vitamin D 25-Hydroxy 59.7 30.0-100 ng/mL White Blood Count 10.4 4.4-10.8 10^3/uL Red Blood Count 5.40 4.5-5.90 10^6/uL Hemoglobin 15.5 13.5-17.5 g/dL Hematocrit 45.1 41.0-53.0 % Mean Corpuscular Volume 83.6 80.0-100.0 fL Mean Corpuscular Hemoglobin 28.7 28.0-32.0 pg Mean Corpuscular Hemoglobin Concent 34.4 32.0-36.0 g/dL Red Cell Distribution Width 13.7 11.8-14.3 % Platelet Count 223 140-450 10^3/uL Mean Platelet Volume 7.9 6.9-10.8 fL Neutrophils (%) (Auto) 69.5 37.0-80.0 % Lymphocytes (%) (Auto) 18.5 10.0-50.0 % Monocytes (%) (Auto) 10.5 0.0-12.0 % Eosinophils (%) (Auto) 1.2 0.0-7.0 % Basophils (%) (Auto) 0.3 0.0-2.0 % Neutrophils # (Auto) 7.2 1.6-8.6 10 ^3/uL Lymphocytes # (Auto) 1.9 0.4-5.4 10 ^3/uL Monocytes # (Auto) 1.1 0-1.3 10 ^3/uL Eosinophils # (Auto) 0.1 0-0.8 10 ^3/uL Basophils # (Auto) 0 0-0.2 10 ^3/uL Nucleated Red Blood Cells 0.0 % Hemoglobin A1c 5.5 <5.7 % A1C Total Bilirubin 0.6 0.2-1.0 mg/dL Aspartate Amino Transferase (AST) 26 13-40 U/L Alanine Aminotransferase (ALT) 34 7-40 U/L Alkaline Phosphatase 67 46-116 U/L Total Protein 6.9 5.7-8.2 g/dL Albumin 4.3 3.2-4.8 g/dL Free Prostate Specific Antigen 0.47 N/A ng/mL Percent Free Prostate Specific Ag 19.6 . % Prostate Specific Antigen Total 2.4 0.0-4.0 ng/mL Magnesium Level 2.1 1.6-2.6 mg/dL Direct Bilirubin 0.3 <0.3 mg/dL Thyroid Stimulating Hormone (TSH) 2.13 0.55-4.78 uIU/mL Test 09/16/25 16:14 Range/Units Urine Color Yellow Yellow Urine Clarity Turbid H Clear Urine pH 6.0 5.0-9.0 Urine Specific [place] 1.018 1.001-1.035 Urine Protein Trace H Negative Urine Ketones 1+ H Negative Urine Blood Negative Negative /uL Urine Nitrite Negative Negative Urine Bilirubin Negative Negative Urine Urobilinogen Normal Negative mg/dL Urine Leukocyte Esterase Negative Negative /uL Urine RBC 2 0 - 3 /hpf Urine Microscopic WBC 3 0-3 /HPF Urine Squamous Epithelial Cells Few <5 /hpf Urine Bacteria None seen None Seen /hpf Urine Hyaline Casts Many 0 - 2 /lpf Urine Mucus Few None Seen Urine Glucose Normal Normal mg/dL Urine Opiates Screen Pos NEGATIVE Urine Fentanyl Screen Neg NEGATIVE Urine Barbiturates Screen Neg NEGATIVE Urine Phencyclidine Screen Neg NEGATIVE Urine Amphetamines Screen Neg NEGATIVE Urine Benzodiazepines Screen Pos NEGATIVE Urine Cocaine Screen Neg NEGATIVE Urine Cannabinoids Screen Pos NEGATIVE Assessment Urinary retention Rectal pain History of anal fistula/fissure Plan/Recommendation Keep Levine to gravity drainage and discharge with leg bag We will perform diagnostic cystoscopy in the office setting next week after his discharge. I recommend GI consultation for the management of his rectal pain. Plan discussed with: Patient, Spouse HUSSEIN PADILLA MD Sep 18, 2025 13:42
[2025-09-18 17:23] VITALS: BP 158/90; PULSE 77; RESP 20; TEMP 98.1; O2SAT 96
--- NOTE | 2025-09-18 17:46 | DVHPNRES ---
Progress Note Date Seen: Sep 18, 2025 Resident Creating Document: IONA HENLEY RESIDENT Medical Necessity Reason Pt with a Central, PICC or Fol: Yes Subjective Review of Systems Luis F Petit is a 65-year old male with past medical history of anxiety and depression who presented to the ED with the chief complaint of acute urinary retention and rectal pain. The patient mentioned he has been having constipation since the last 2 months which has recently worsened. He went to [place] 1 week back where he was diagnosed with rectal fissure at 3 o'clock position. He complains of intense rectal pain and a feeling of fullness in the abdomen, and little to no relief with stool softeners. He also mentioned having lower abdominal pain since the last 3 days with almost no urine output. Abdomen/pelvic CT showed moderate stool in the colon and right kidney cyst. The patient had passage of small bowel movement after getting lactulose in the ED. Patient also mentions having redness, crusting and yellowish discharge from both eyes since 2 days. Past medical history: Anxiety, depression Past surgical history: None, urolift 2 years back Social & Personal history: Lives at home with family Smoking, alcohol, drugs: Denies Allergies: No known allergies Patient seen and examined at bedside. Patient is alert and oriented to time, place person and responding to all questions. Eyes: No Pain, No Vision change, Conjunctivae inflammation, Eyelid inflammation, Redness with crusted discharge ENT: No Ear pain, No Ear discharge, No Nose pain, No Nose discharge, No Nose congestion, No Mouth pain, No Mouth swelling, No Throat pain, No Throat swelling Cardiovascular: No Chest Pain, No Palpitations, No Orthopnea, No Paroxysmal No Dyspnea, No Edema, No Lt Headedness Respiratory: No Cough, No Dry, No Shortness of breath, No SOB with exertion, No Wheezing, No Hemoptysis, No Pleuritic Pain, No Sputum Gastrointestinal: No Nausea, No Vomiting, rectal pain, No Diarrhea, No Constipation, No Melena, No Hematochezia Genitourinary: No Dysuria, No Frequency, No Incontinence, No Hematuria, no Retention 09/18/25- The patient was seen and evaluated at bedside today. Patient mention he continues to have rectal pain. PSA level is 0.47. Urology recommended to keep Hurtado to gravity drainage and discharge with leg bag. They will perform diagnostic cystoscopy in the office setting next week after discharge. We called his and gave her all updates about our evaluation and management. Possible discharge for tomorrow was discussed with the patient. Objective vital signs Vital Sign Date Time Temp Pulse Resp B/P (MAP) Pulse Ox O2 Delivery O2 Flow Rate FiO2 09/18/25 17:23 98.1 77 20 158/90 (112) 96 98.1 09/18/25 08:00 Room Air* 0 21 Total Intake and Output 09/17/25 09/17/25 09/18/25 15:00 23:00 07:00 Intake Total 125 ml 650 ml Output Total 2350 ml Balance 125 ml -1700 ml medications Current Medications Medications Dose Ordered Sig/Hermelinda Route Start Time Stop Time Status Last Admin Dose Admin Docusate Sodium 100 mg BIDPRN PRN PO 09/16/25 21:00 09/17/25 17:06 100 MG Hydromorphone HCl 0.5 mg Q6HPRN PRN IV 09/16/25 21:00 09/18/25 13:51 0.5 MG Lactulose 30 ml BID PRN PO 09/16/25 21:00 09/17/25 08:48 30 ML Alprazolam 0.5 mg BID PO 09/16/25 22:00 09/18/25 10:00 0.5 MG Ciprofloxacin HCl 1 drop TID EACHEYE 09/16/25 22:00 09/18/25 13:50 1 DROP Tamsulosin HCl 0.4 mg QPM PO 09/17/25 18:00 09/17/25 17:06 0.4 MG Sodium Chloride 1,000 ml @ 75 mls/hr [id number] IV 09/17/25 16:00 09/18/25 05:41 75 MLS/HR Examination General Appearance: Cooperative. Well developed. Well nourished. NAD. Hurtado catheter in situ. Head Exam: Normal inspection, bilateral conjunctival redness, crusting Neck Exam: Normal inspection. Non-tender. Normal alignment Pulmonary/Respiratory: Chest non-tender. Clear bilateral breath sounds, no crackles, no wheezing. Cardiovascular/Chest: Regular rate and rhythm. No murmurs. No JVD. Peripheral Pulses: 2+ Radial (R). 2+ Radial (L). 2+ Pedal (R). 2+ Pedal (L) Abdominal Exam: Normal bowel sounds. Soft. distended abdomen, no visible veins, tenderness on palpation of lower abdomen. No hepatospenomegaly. No masses Ankle Exam: Negative ankle edema Lower extremities: Negative lower extremity edema Neuro/Mental Status: A&O x4. Coherent. Thoughts/Psych: Normal thought pattern. Appropriate mood and affect. Good judgement and insight Skin Exam: Normal inspection. Normal color. Warm. Dry Rectal exam: on inspection, anal skin tag present, no external hemorrhoids seen, patient refused SAVI due to rectal pain Nurse Kaycee was present as bottle capper during the examination laboratory and microbiology Laboratory Tests 09/18/25 05:33 09/17/25 05:52 Test 09/18/25 05:33 Range/Units Serum Glucose 89 74-106 mg/dL Labs and/or images reviewed: Labs reviewed by me, Image(s) reviewed by me Problem List/Assessment/Plan Problem List/Assessment/Plan # Acute urinary retention, possibly due to BPH # Renal cyst -PSA 0.47 -urology consult placed- recommended to keep hurtado and discharge with leg bag and follow up outpatient for diagnostic cystoscopy next week -Hurtado catheter in situ -Renal US- 2 cm right renal cyst -Abdomen/pelvic CT- Moderate stool in the colon, right kidney cysts and small fat containing indirect right inguinal hernia -flomax 0.4 mg q pm po # Severe acute on chronic constipation # Rectal fissure -Abdomen/pelvic CT-Moderate stool in the colon, right kidne cysts and small fat containing indirect right inguinal hernia -lactulose 30 mL p.o. b.i.d. -colace 100mg po bid -small bowel follow through ordered # DANNY, likely due to VMN -creatinine is 1.51 -IV fluid NS @ 75ml/hr -avoid nephrotoxic agents -monitor BMP # Acute bilateral conjunctivitis, likely bacterial -ciprofloxacin 0.3% 1 drop tid each eye # Anxiety # Depression -continue Xanax 0.5 mg p.o. b.i.d. PUD prophylaxis: Not indicated DVT prophylaxis: Ambulatory Goals of care: Full code, discussed for >23 minutes on Plan discussed with patient Plan discussed with Dr Ji Plan discussed with: Patient, Spouse Date of Service: Sep 18, 2025 Billing Provider: BRYAN JI MD Common Visit Codes: [id number] INP/OBS CARE(HIGH) PRISCILLADOUGCARMELORENAE ANNE RESIDENT Sep 18, 2025 17:46
[2025-09-18 21:00] VITALS: BP 125/90; PULSE 93; RESP 17; TEMP 98.3; O2SAT 95
[2025-09-18] MEDS: MELATONIN 5 MG TAB PO ONE (22:24)
[2025-09-19 01:00] VITALS: BP 133/83; PULSE 83; RESP 17; TEMP 98.2; O2SAT 94
[2025-09-19 05:00] VITALS: BP 141/99; PULSE 92; RESP 18; TEMP 97.8; O2SAT 99
[2025-09-19 07:03] LABS: Anion Gap 11 (5-15); Carbon Dioxide 24 mmol/L (20-31); Chloride 102 mmol/L (98-107); Potassium 3.7 mmol/L (3.5-5.1); Sodium 137 mmol/L (136-145)
[2025-09-19 07:05] LABS: Calcium 9.2 mg/dL (8.7-10.4)
[2025-09-19 07:09] LABS: BUN/Creatinine Ratio 6.5 (10.0-20.0)
[2025-09-19 07:10] LABS: Blood Urea Nitrogen 7 mg/dL (9-23); Glucose 123 mg/dL (74-106)
[2025-09-19] MEDS ORDERED: LACT10SO3 PO (07:16)
[2025-09-19 08:00] VITALS: PULSE 73
[2025-09-19] MEDS ORDERED: POLY335015 PO (08:51)
[2025-09-19 09:00] VITALS: BP 152/95; PULSE 74; RESP 20; TEMP 97.2; O2SAT 97
[2025-09-19] MEDS ORDERED: TAMS0.4C39 PO (10:13)
[2025-09-19 10:47] VITALS: BP 150/95; PULSE 74; RESP 20; TEMP 97.2; O2SAT 97
[2025-09-19 13:00] VITALS: BP 135/91; PULSE 76; RESP 19; TEMP 97.7; O2SAT 97
--- NOTE | 2025-09-19 15:01 | DVHDSRES ---
Discharge Summary Date of Admission Resident Creating Document: IONA HENLEY RESIDENT Sep 16, 2025 at 20:48 Date of Discharge: Sep 19, 2025 Labs/Diagnostic Data: Laboratory Results Test 09/19/25 06:00 09/17/25 10:26 09/17/25 05:52 09/16/25 17:00 Sodium Level 137 mmol/L (136-145) Potassium Level 3.7 mmol/L (3.5-5.1) Chloride Level 102 mmol/L (98-107) Carbon Dioxide Level 24 mmol/L (20-31) Anion Gap 11 (5-15) Blood Urea Nitrogen 7 mg/dL (9-23) Creatinine 1.08 mg/dL (0.700-1.30) Glomerular Filtration Rate Calc 75 mL/min (>90) BUN/Creatinine Ratio 6.5 (10.0-20.0) Serum Glucose 123 mg/dL (74-106) Calcium Level 9.2 mg/dL (8.7-10.4) Vitamin B12 Level 491 pg/mL (211-911) Vitamin D 25-Hydroxy 59.7 ng/mL (30.0-100) White Blood Count 10.4 10^3/uL (4.4-10.8) Red Blood Count 5.40 10^6/uL (4.5-5.90) Hemoglobin 15.5 g/dL (13.5-17.5) Hematocrit 45.1 % (41.0-53.0) Mean Corpuscular Volume 83.6 fL (80.0-100.0) Mean Corpuscular Hemoglobin 28.7 pg (28.0-32.0) Mean Corpuscular Hemoglobin Concent 34.4 g/dL (32.0-36.0) Red Cell Distribution Width 13.7 % (11.8-14.3) Platelet Count 223 10^3/uL (140-450) Mean Platelet Volume 7.9 fL (6.9-10.8) Neutrophils (%) (Auto) 69.5 % (37.0-80.0) Lymphocytes (%) (Auto) 18.5 % (10.0-50.0) Monocytes (%) (Auto) 10.5 % (0.0-12.0) Eosinophils (%) (Auto) 1.2 % (0.0-7.0) Basophils (%) (Auto) 0.3 % (0.0-2.0) Neutrophils # (Auto) 7.2 10 ^3/uL (1.6-8.6) Lymphocytes # (Auto) 1.9 10 ^3/uL (0.4-5.4) Monocytes # (Auto) 1.1 10 ^3/uL (0-1.3) Eosinophils # (Auto) 0.1 10 ^3/uL (0-0.8) Basophils # (Auto) 0 10 ^3/uL (0-0.2) Nucleated Red Blood Cells 0.0 % Hemoglobin A1c 5.5 % A1C (<5.7) Total Bilirubin 0.6 mg/dL (0.2-1.0) Aspartate Amino Transferase (AST) 26 U/L (13-40) Alanine Aminotransferase (ALT) 34 U/L (7-40) Alkaline Phosphatase 67 U/L (46-116) Total Protein 6.9 g/dL (5.7-8.2) Albumin 4.3 g/dL (3.2-4.8) Free Prostate Specific Antigen 0.47 ng/mL (N/A) Percent Free Prostate Specific Ag 19.6 % (.) Prostate Specific Antigen Total 2.4 ng/mL (0.0-4.0) Magnesium Level 2.1 mg/dL (1.6-2.6) Direct Bilirubin 0.3 mg/dL (<0.3) Thyroid Stimulating Hormone (TSH) 2.13 uIU/mL (0.55-4.78) Test 09/16/25 16:14 Urine Color Yellow (Yellow) Urine Clarity Turbid (Clear) Urine pH 6.0 (5.0-9.0) Urine Specific [place] 1.018 (1.001-1.035) Urine Protein Trace (Negative) Urine Ketones 1+ (Negative) Urine Blood Negative /uL (Negative) Urine Nitrite Negative (Negative) Urine Bilirubin Negative (Negative) Urine Urobilinogen Normal mg/dL (Negative) Urine Leukocyte Esterase Negative /uL (Negative) Urine RBC 2 /hpf (0 - 3) Urine Microscopic WBC 3 /HPF (0-3) Urine Squamous Epithelial Cells Few /hpf (<5) Urine Bacteria None seen /hpf (None Seen) Urine Hyaline Casts Many /lpf (0 - 2) Urine Mucus Few (None Seen) Urine Glucose Normal mg/dL (Normal) Urine Opiates Screen Pos (NEGATIVE) Urine Fentanyl Screen Neg (NEGATIVE) Urine Barbiturates Screen Neg (NEGATIVE) Urine Phencyclidine Screen Neg (NEGATIVE) Urine Amphetamines Screen Neg (NEGATIVE) Urine Benzodiazepines Screen Pos (NEGATIVE) Urine Cocaine Screen Neg (NEGATIVE) Urine Cannabinoids Screen Pos (NEGATIVE) Other Laboratory Tests 09/19/25 06:00 09/17/25 05:52 Brief Hx & Hospital Course: Luis F Petit is a 65-year old male with past medical history of anxiety and depression who presented to the ED with the chief complaint of acute urinary retention and rectal pain. The patient mentioned he has been having constipation since the last 2 months which recently worsened. He went to [place] 1 week back where he was diagnosed with rectal fissure at 3 o'clock position. He complained of intense rectal pain and a feeling of fullness in the abdomen, and little to no relief with stool softeners. He also mentioned having lower abdominal pain since the last 3 days with almost no urine output. Abdomen/pelvic CT showed moderate stool in the colon and right kidney cyst. The patient had passage of small bowel movement after getting lactulose in the ED. Patient also mentioned having redness, crusting and yellowish discharge from both eyes since 2 days and was prescribed ciprofloxacin eye drops for the same. PSA level was 0.47. Urology recommended to keep Levine for gravity drainage and diagnostic cystoscopy in the office next week. Patient was discharged home in a stable condition with Levine and leg bag. All medications and recommendations were thoroughly explained to the patient and his , and they demonstrated understanding of the same. The patient set up an appointment for Urology next week. Patient was asked to follow-up in [place] clinic within 1 week. Past medical history: Anxiety, depression Past surgical history: None, urolift 2 years back Social & Personal history: Lives at home with family Smoking, alcohol, drugs: Denies Allergies: No known allergies General Appearance: Cooperative. Well developed. Well nourished. NAD. Levine catheter in situ. Head Exam: Normal inspection, bilateral conjunctival redness, crusting Neck Exam: Normal inspection. Non-tender. Normal alignment Pulmonary/Respiratory: Chest non-tender. Clear bilateral breath sounds, no crackles, no wheezing. Cardiovascular/Chest: Regular rate and rhythm. No murmurs. No JVD. Peripheral Pulses: 2+ Radial (R). 2+ Radial (L). 2+ Pedal (R). 2+ Pedal (L) Abdominal Exam: Normal bowel sounds. Soft. distended abdomen, no visible veins, nontender. No hepatospenomegaly. No masses Ankle Exam: Negative ankle edema Lower extremities: Negative lower extremity edema Neuro/Mental Status: A&O x4. Coherent. Thoughts/Psych: Normal thought pattern. Appropriate mood and affect. Good judgement and insight Skin Exam: Normal inspection. Normal color. Warm. Dry Rectal exam: on inspection, anal skin tag present, no external hemorrhoids seen, patient refused SAVI due to rectal pain Nurse Kaycee was present as sap sd analyst during the examination Operations or Procedures 1.PROCEDURE(s): ABPL - CT AB PEL WO CON-NO ORAL OR IV REASON: pain ORDER NUMBER(s): [id number], ACCESSION NUMBER(s): [id number] CLINICAL INFORMATION: Pain. Rectal pain. TECHNIQUE: Axial CT images of the abdomen and pelvis were obtained without IV contrast. Coronal and sagittal reformatted images were obtained, reviewed, and stored. Evaluation of the parenchymal organs is limited without IV contrast. Evaluation of the bowel and mesentery is limited without oral contrast. All CT scans at this medical facility are performed using dose modulation techniques as appropriate to a performed exam including the following: Automated exposure control was utilized; adjustment of the MA and/or KV according to patient size; and use of iterative reconstruction technique. CTDIvol = 21.6 mGy DLP = 1304.07 mGy-cm COMPARISON: None FINDINGS: Lung bases: Lung bases are clear. Liver: Grossly unremarkable in its noncontrast enhanced appearance. No abnormal density or focal lesion identified. Biliary: No calcified gallstones or biliary ductal dilatation. Spleen: Unremarkable. Pancreas: Grossly unremarkable in its noncontrast enhanced appearance. Adrenal glands: Unremarkable. No mass. Kidneys: No hydronephrosis. No renal or ureteral calculi. Fluid density lesions in the right kidney, with the largest measuring up to 1.6 cm, likely cysts, although not optimally evaluated on noncontrast enhanced CT. Aorta/Vascular: Scattered atherosclerotic calcification. No abdominal aortic aneurysm. Lymph nodes: No mass or lymphadenopathy. Bowel/mesentery: No small bowel obstruction. No free air or free fluid. Appendix is visualized and appears unremarkable. Moderate stool in the colon. Pelvic organs: Grossly unremarkable. Bladder: Bladder is completely collapsed around a Levine catheter balloon. Abdominal wall: Small fat containing indirect right inguinal hernia. Bones: No acute fracture or suspicious intraosseous lesion. IMPRESSION: 1. No acute abnormality identified in the abdomen or pelvis. 2. Moderate stool in the colon. 3. Low-attenuation lesions in the right kidney are most likely cysts, but not well evaluated on noncontrast enhanced CT. 4. Additional findings as described above. 2.PROCEDURE(s): KIDUS - KIDNEY REASON: acute urinary retension ORDER NUMBER(s): [id number], ACCESSION NUMBER(s): [id number] INDICATION: acute urinary retension TECHNIQUE: Multiple real-time sonographic images of the kidneys and bladder were obtained. COMPARISON: None FINDINGS: RIGHT kidney measures 11.1 cm in length. Anechoic cortical lesion measuring 1.9 x 1.5 x 1.8 cm consistent with cortical cyst No hydronephrosis. LEFT kidney measures 10.2 cm in length. No hydronephrosis. No large intraluminal masses are seen in the bladder. Levine catheter in bladder bladder is empty. IMPRESSION: 1. 11.1 cm long right kidney. 10.2 cm long left kidney. 2. 2 cm right renal cyst 3.PROCEDURE(s): KUB - KUB ABDOMEN SINGLE VIEW REASON: constipation ORDER NUMBER(s): [id number], ACCESSION NUMBER(s): [id number] Exam: XY KUB ABDOMEN SINGLE VIEW Indication: constipation Comparison: CT CT AB PEL WO CON-NO ORAL OR IV on DOS: 09/16/25 Technique: Single radiographic view of the abdomen. Findings: Nonobstructive bowel gas pattern noted. Moderate Retained colorectal stool. There is no definite evidence for pneumoperitoneum. No abnormal calcifications noted. Impression: 1. Moderate retained colorectal stool. Nonobstructive bowel gas pattern. Condition at Discharge: Fair Final Diagnosis/Problems List Acute urinary retention, possibly due to BPH DANNY, likely due to VMN Renal cyst Severe acute on chronic constipation Rectal fissure DANNY, likely due to VMN Acute bilateral conjunctivitis, likely bacterial Anxiety Depression Discharge Disposition: Home Discharge Instruct/Medications Diet: Regular Activity: No Restrictions, As Tolerated Follow Up/Referral: follow up with urology within 1 week follow up in [place] [facility] in 1 week Scheduled Escitalopram Oxalate (Lexapro), 1 TAB PO DAILY, (Reported) Lactulose (Lactulose), 10 GM PO DAILY Lidocaine (Lidoderm 5% Topical Patch), 1 PATCH TOP DAILY, (Reported) Lidocaine (Anorectal) (Lidocaine 5%), 5 % EX BID Nifedipine (Nifedipine Er), 1 TAB PO DAILY, (Reported) Polyethylene Glycol 3350 (Miralax), 17 GM PO DAILY Tamsulosin Hcl (Tamsulosin Hcl), 1 CAP PO DAILY Miscellaneous Medications Methocarbamol (Robaxin), 750 MG PO, (Reported) Moxifloxacin Hydrochloride (Moxifloxacin), 0.5 % OP, (Reported) Polyethylene Glycol 3350 (Miralax), 17 GM PO, (Reported) Discharge Statement: "Patient was advised to return to the ER or call 911 if any headaches, dizziness, shortness of breath, chest pain, abdominal pain, bleeding, fevers, or worsening of medical condition. Patient was counseled about treatment plan, medications, possible side effects, patientverbalized understanding. All questions were answered to the best of my ability. This discharge took greater then 30 minutes in planning, reviewing documentation, counseling the patient, and discussing with other team members." ASSESSMENT ASSESSMENT Assessment acute urinary retention Date of Service: Sep 19, 2025 Billing Provider: RBYAN WOMACK MD Common Visit Codes: 05922-MRZ/OBS DISCH DAY >30min IONA HENLEY RESIDENT Sep 19, 2025 15:01
[2025-09-19] MEDS ORDERED: LIDO5CRE14 EX (15:03)
== END 2025-09-19 13:13 | disposition home or self-care (01) | DRG 725 ==
LOC: ER 12:15 → OVERFLOW 20:48 → EAST 09-17 14:51
PROVIDERS: ADMIT Internal Medicine; ATTEND Internal Medicine
DX: N40.1 Benign prostatic hyperplasia with lower urinary tract symptoms (principal); N17.0 Acute kidney failure with tubular necrosis; H10.33 Unspecified acute conjunctivitis, bilateral; F32.A Depression, unspecified; E87.1 Hypo-osmolality and hyponatremia; K60.2 Anal fissure, unspecified; K59.00 Constipation, unspecified; F41.9 Anxiety disorder, unspecified; R33.9 Retention of urine, unspecified; N28.1 Cyst of kidney, acquired; Z79.899 Other long term (current) drug therapy
CPT/HCPCS: 36415; 74018; 74176; 76775; 80048; 80053; 80076; 80307; 81001; 82306; 82607; 83036; 83735; 84154; 84443; 85025; 96374; 96375; G0378; J2405